=== PATIENT | female | born 1930 | race Caucasian/White ===

== ENCOUNTER → 2016-10-21 | Outpatient (CLI) | payer MEDICARE, OTHER ==
[~2016-10-21] MED LIST: ASPIRIN EC325 MG PO; AUGMENTIN250 MG PO; BACLOFEN10 MG PO; BACTRIM DS1 TAB PO; CALCIUM 600 +1 EAC3 PO; CEFUROXIME250 MG PO; COLACE100 MG PO; DILAUDID 4MG4 MG PO; DULCOLAX10 MG R; ELAVIL25 MG PO; FEOSOL325 MG PO; FLEXERIL10 MG PO; FLORASTOR250 MG PO; K-TAB 10MEQ10 MEQ PO; KEFLEX250 MG PO; LASIX20 MG PO; LIORESAL10 MG PO; MILK OF MA400 MG/5 M PO; MIRALAX17 GM PO; MYLICON OR GAS-80 MG PO; NORCO 5-325 TA1 EACH PO; NORVASC10 MG PO; OMEPRAZOLE20 MG PO; RECLAST5 MG/100 M IV; REQUIP1 MG PO; TOLTERODINE TART4 MG PO; TYLENOL325 MG PO; ULTRAM50 MG PO; VITAMIN B-1000 MCG/M SUB-Q; ZOCOR80 MG PO; ZOFRAN4 MG PO
== END | disposition disaster alternative care site (69) ==
LOC: GAMB 22:46
DX: S09.90XA Unspecified injury of head, initial encounter (principal); S01.91XA Laceration without foreign body of unspecified part of head, initial encounter; R53.1 Weakness; W19.XXXA Unspecified fall, initial encounter
CPT/HCPCS: A0425; A0429

== ENCOUNTER → 2016-10-22 | Outpatient (CLI) | payer MEDICARE, OTHER | END | disposition disaster alternative care site (69) | LOC: GAMB 22:47 | DX: S99.911A Unspecified injury of right ankle, initial encounter (principal); S82.891A Other fracture of right lower leg, initial encounter for closed fracture; M79.672 Pain in left foot; X58.XXXA Exposure to other specified factors, initial encounter | CPT/HCPCS: A0425; A0427; J3010 ==

== ENCOUNTER 2016-12-07 12:00 | Inpatient (IN) | payer MEDICARE, OTHER ==
[~2016-12-07] VITALS: Ht 165.1 cm; Wt 80.9 kg
--- NOTE | ~2016-12-07 | CON ---
PATIENT'S NAME: WALTER CHRISTIE [facility] AGE: 86 Y [address] ROOM: [place] [address] LOCATION: [facility] ADMIT DATE: 12/07/2016 Consultation DISCHARGE DATE: FAMILY PHYSICIAN: Alba Mccabe MD ATTENDING PHYSICIAN: Brigido Amaya DATE OF CONSULTATION: 12/07/2016 CHIEF COMPLAINT: Right ankle infected surgical wound site, medical clearance for surgery. HISTORY OF PRESENT ILLNESS: This is an 86-year-old female with history of hypertension; MS; and recent right ankle fracture, status post ORIF and metal hardware placement at the end of October, who presents with worsening pain and nonhealing wound at the surgical site over the past several weeks. The patient was admitted for exploration of the wound site per Ortho. The patient is being seen today for medical clearance. During my evaluation today, the patient complains of increasing pain in the right leg, however, denies any systemic signs of infection including fever or chills. Does report diminished appetite, but otherwise has been in her normal state of health. Denies any chest pain, shortness of breath, palpitations, dizziness, or lightheadedness as well. Denies any dysuria or frequency. Urination is abnormal from her baseline, but she does suffer from incontinence. PAST MEDICAL HISTORY: 1. Hypertension. 2. MS. SOCIAL HISTORY: No history of smoking, alcohol, or drug use. FAMILY HISTORY: The patient has history of stroke and heart attack in both of her parents. REVIEW OF SYSTEMS: All systems have been reviewed and were negative except as described in the HPI. PHYSICAL EXAMINATION: VITAL SIGNS: Afebrile and stable. GENERAL: The patient is awake, alert, oriented x3, in no acute distress, but appears a bit lethargic. HEENT: Moist mucous membranes. No scleral icterus or conjunctival pallor noted. PATIENT'S NAME: EDWIN CHRISTIEMA Beverly [facility] AGE: 86 Y [address] ROOM: [place] [address] LOCATION: [facility] ADMIT DATE: 12/07/2016 Consultation DISCHARGE DATE: FAMILY PHYSICIAN: Alba Mccabe MD ATTENDING PHYSICIAN: Brigido Amaya SKIN: No rash or lesions noted. Brace on the right ankle in place. CHEST: Clear to auscultation bilaterally. HEART: S1 and S2. Regular rate and rhythm. ABDOMEN: Soft, nontender, and nondistended. Positive bowel sounds. NEURO: Right upper extremity weakness, which is at baseline. MUSCULOSKELETAL: Right ankle in brace over the site of recent ORIF. No other joint swelling, effusion, or pain noted. ASSESSMENT AND PLAN: 1. Right ankle infected surgical site leading to recent open reduction and internal fixation. The patient plans for surgical exploration later today. ID consultation in place following this and determination of how to treat infection. Long-term to be determined based on what the surgery results show. 2. Hypertension. The patient is to continue her home medications for this. 3. Multiple sclerosis. The patient is to continue all her home medications for this as well. 4. Deep venous thrombosis prophylaxis per Ortho. The patient is at moderate risk for perioperative complications, but benefit of the surgery outweighs the potential risks associated. This has been discussed with the patient in detail. MD VICENTA IVORY/awais /[id number] d: 12/07/16 1843 t: 12/09/16 1421, CONSULTATION REPORT
--- NOTE | ~2016-12-07 | CON ---
PATIENT'S NAME: WALTER CHRISTIE [facility] AGE: 86 Y [address] ROOM: [place] [address] LOCATION: [facility] ADMIT DATE: 12/07/2016 Consultation DISCHARGE DATE: FAMILY PHYSICIAN: Alba Mccabe MD ATTENDING PHYSICIAN: Brigido Amaya DATE OF CONSULTATION: 12/08/2016 REQUESTING PHYSICIAN: Consultation is requested by Dr. Brigido Amaya. REASON FOR CONSULTATION: Right ankle postoperative infection. HISTORY OF PRESENT ILLNESS: Subjective: Walter is a pleasant 86-year-old female, whom I was asked to see today in consultation by Dr. Brigido Amaya for further evaluation and treatment recommendations regarding a right ankle infection. She underwent open reduction and internal fixation, apparently at another facility in October. She has had a nonhealing wound medially, and is subsequently admitted with increasing pain and swelling in the leg for likely debridement. She was on an oral antibiotic as an outpatient, but she does not know which one. She has not had any fevers, chills, or sweats. Prior wound cultures have grown methicillin-resistant Staphylococcus epidermidis. PAST MEDICAL HISTORY: 1. Hypertension. 2. Multiple sclerosis. CURRENT MEDICATIONS: See the MAR for complete listing. Current antibiotics are ceftriaxone. ALLERGIES: PREDNISONE, PHENYLBUTAZONE, NAPROXEN, SULFASALAZINE, AND SEVERAL NONSTEROIDAL MEDICATIONS. SOCIAL HISTORY: No history of alcohol or tobacco abuse. FAMILY HISTORY: Significant for stroke and heart disease. REVIEW OF SYSTEMS: A complete review of systems was carried out, and was remarkable only as noted. Please refer to the admission history and physical for complete PATIENT'S NAME: WALTER CHRISTIE [facility] AGE: 86 Y [address] ROOM: [place] [address] LOCATION: [facility] ADMIT DATE: 12/07/2016 Consultation DISCHARGE DATE: FAMILY PHYSICIAN: Alba Mccabe MD ATTENDING PHYSICIAN: Brigido Amaya details. PHYSICAL EXAMINATION: Objective: GENERAL APPEARANCE: She appears pleasant and comfortable and is in no acute distress. She appears nontoxic. VITAL SIGNS: Temperature is 36.8, blood pressure 138/68, and pulse 78. HEENT: Posterior pharynx clear, no adenopathy or thyromegaly. Cranial nerves are intact. NECK: Supple. CHEST: Clear to auscultation. CARDIOVASCULAR: Regular rate and rhythm without S3, S4, or murmur. ABDOMEN: Soft, nontender, without hepatosplenomegaly or masses. EXTREMITIES: The right medial ankle has a VAC in place with the wound approximately 2 x 3 cm, no surrounding erythema or significant swelling. NEUROLOGIC: Strength and sensation are grossly intact. PSYCHIATRIC: Behavior and affect are appropriate. LABORATORY DATA: Laboratory: Creatinine 0.7, white count 6.9. Microbiology: Urine culture on 12/07/2016 is pending. Urinalysis shows a packed field with red and white cells. Wound cultures on 11/25/2016 shows Staphylococcus epidermidis, resistant to oxacillin. IMPRESSION: Nonhealing wound of the right ankle, likely representing a deep postoperative wound infection. I am not clear what type of hardware she had placed, as her surgery was not done here and there is no information in the chart, or any x- rays. She tells me that she had a jed placed. In any event, the setting is suspicious for infection down to and involving the hardware. If that is the case, I am highly skeptical that this will resolve without complete removal of all the hardware. Other diagnoses are stable, as noted above. PLAN: For now, I would like to hold on further antibiotics. Surgery is anticipated, and we will await the surgical findings and cultures which are obtained at surgery. We can then start vancomycin 1 g every 24 hours, the dose adjusted by pharmacy as needed subsequently. I would anticipate several weeks of IV antibiotics, depending upon the surgical procedure and findings. I or one of my colleagues will see her back in 1 week for re-evaluation. Thank you for this consultation. I am available to discuss the case by phone PATIENT'S NAME: WALTER CHRISTIE [facility] AGE: 86 Y [address] ROOM: [place] [address] LOCATION: [facility] ADMIT DATE: 12/07/2016 Consultation DISCHARGE DATE: FAMILY PHYSICIAN: Alba Mccabe MD ATTENDING PHYSICIAN: Brigido Amaya at [phone]. GARRETT NOGUERA MD JSS/modl /[id number] d: 12/08/162053 t: 12/09/16811, CONSULTATION REPORT
--- NOTE | ~2016-12-07 | DS ---
PATIENT'S NAME: WALTER CHRISTIE AGE: 86 Y [address] ROOM: [address] [address] LOCATION: [facility] ADMIT DATE: 12/07/2016 Discharge Summary DISCHARGE DATE: 12/17/2016 FAMILY PHYSICIAN: Alba Mccabe MD ATTENDING PHYSICIAN: Brigido Amaya ADMITTING DIAGNOSIS: Infected hardware right ankle. COMORBIDITIES: History of stroke, MS, and hypertension. HOSPITAL COURSE: Hospitalist was consulted for inpatient management of her ongoing medical problems. Ceftriaxone was started 1 g IV daily 1 dose, close to admission for presumptive diagnosis of urinary tract infection. Urine culture was obtained prior to the initiation of the antibiotic. Lovenox was started for DVT prophylaxis. Infectious Disease was consulted. They suggested stopping the ceftriaxone, using vancomycin postop 1 g IV q.24 and get cultures at the time of hardware removal. PICC line placement was ordered for presumptive diagnosis of osteomyelitis with the need for assisted IV antibiotic administration. Adjustments were made to the vancomycin schedule according to pharmacy therapeutics recommendations. The patient's urine culture showed VRE. Wound VAC was placed on the right ankle over the exposed hardware. The patient complained on hospital day 2 of abdominal swelling and distention. Abdominal x-ray 2-view was ordered. Wound nurses continue to change the wound VAC 3 times a week. Postop day 7, continued to follow wound VAC changes week and wound was evaluated at each dressing change. PICC line was changed and a new one was placed for continued IV antibiotic administration. Ankle x-rays did show no callus formation with maintenance of reduction of the tibial component. The patient's appointments made at time of discharge was for followup with Infectious Disease in 3 weeks and we will follow up with her at our office in 2 weeks, and on 12/17/2016, arrangements were be made for the patient to be transferred to the fci of her choice and will get continued administration of IV antibiotics for her infection. JOIE ERWIN FOR MD NASEEM CARPENTER/awais /[id number] d: 01/06/17 0436 t: 02/09/17 1035, DISCHARGE SUMMARY
[2016-12-07] MEDS ORDERED: ASPIRIN EC325 MG PO (13:44)
[2016-12-07] MEDS ORDERED: ELAVIL25 MG PO (13:44)
[2016-12-07] MEDS ORDERED: CALCIUM 600 +1 EAC3 PO (13:45)
[2016-12-07] MEDS ORDERED: CEFUROXIME250 MG PO (13:46)
[2016-12-07] MEDS ORDERED: VITAMIN B-1000 MCG/M SUB-Q (13:48)
[2016-12-07] MEDS ORDERED: FEOSOL325 MG PO (13:49)
[2016-12-07] MEDS ORDERED: TOLTERODINE TART4 MG PO (13:49)
[2016-12-07] MEDS ORDERED: LIORESAL10 MG PO (13:50)
[2016-12-07] MEDS ORDERED: BACTRIM DS1 TAB PO (13:51)
[2016-12-07] MEDS ORDERED: COLACE100 MG PO (13:51)
[2016-12-07] MEDS ORDERED: BACLOFEN10 MG PO (13:52)
[2016-12-07] MEDS ORDERED: FLEXERIL10 MG PO (13:53)
[2016-12-07] MEDS ORDERED: DILAUDID 4MG4 MG PO (13:54)
[2016-12-07] MEDS ORDERED: MILK OF MA400 MG/5 M PO (13:55)
[2016-12-07] MEDS ORDERED: DULCOLAX10 MG R (13:55)
[2016-12-07] MEDS ORDERED: NORCO 5-325 TA1 EACH PO (13:56)
[2016-12-07] MEDS ORDERED: TYLENOL325 MG PO (13:57)
[2016-12-07] MEDS ORDERED: ZOFRAN4 MG PO (13:58)
--- NOTE | 2016-12-07 14:28 | NUR ---
86 Y/O FEMALE ADMITTED FOR AN INFECTED RT ANKLE HARDWARE. PT HAD ORIF IN OCTOBER AT [facility] WITH DR SANTIAGO AND THEN WENT TO [facility] FOR RECOVERY. ALLERGIES - PENICILLIN, PREDNISONE, NAPROXEN MED & SURG HISTORY - BILAT CATARACT W/ IOLI, FX WRIST & REPOAR, BROKEN KNEE CAP, BRAIN ANEURISM COILILNG, RT ANKLE ORIF & FRACTURE OF TIB/FIB OCTOBER 2016. PT DIAGNOSED WITH MULTIPLE SCLEROSIS DIAGNOSED 1999, HYPERTENSION, CONSTIPATION, FREQ UTI'S & BLADDER INCONTINANCE, NON DRINKER, NON SMOKER, PT DECEMBER 2015, PT WENT TO LIVE AT [facility] AFTER THAT UNTIL HER FRACTURES IN OCTOBER 2016. REPORT GIVEN TO PT PRIMARY CARE NURSE NEGRA PAYTON ADM EDUCATION COMPLETED WITH PT & SON
--- NOTE | 2016-12-07 17:56 | NUR ---
Significant Event: ADMITTED TODAY AROUND 1230..NEED TO USE LIFT FOR TRANSFERS. HAS HX MS AND IS UNABLE TO WALK...CSM GOOD IN TOES. WOC NURSE HERE AT 1530 APPLIED WOUND VAC,IS INCONT OF BOWEL AND BLADDER..HAD SURGERY ON RIGHT ANKLE IN OCTOBER...IS SABLE TO MAKE NEEDS KNOWN... Follow up:
[2016-12-07 23:15] LABS: BILIRUBIN URINE NEGATIVE (NEGATIVE); BLOOD URINE 250 /UL (NEGATIVE); COLOR URINE RED (YELLOW); GLUCOSE URINE NEGATIVE (NEGATIVE); KETONE URINE NEGATIVE (NEGATIVE); LEUKOCYTES URINE 500 /UL (NEGATIVE); NITRITE URINE POSITIVE (NEGATIVE); PROTEIN URINE 100 mg/dL (NEGATIVE); SPEC GRAVITY URINE 1.015 (1.003-1.035); TURBIDITY URINE 3+ (CLEAR); UROBILINOGEN URINE NORMAL (NORMAL)
[2016-12-07 23:22] LABS: BACTERIA URINE MANY (NEGATIVE); RBC URINE FULL FIELD #/HPF (NEGATIVE); WBC URINE FULL FIELD #/HPF (NEGATIVE)
--- NOTE | 2016-12-08 04:52 | NUR ---
Patient alert and oriented x3, very pleasant and cooperative, has wound vac in place to right lower leg no drainage present, dressing clean dry and intact, patient is a full body lift, had urinary frequency and bloody drainage, did UA recieved order from for IV antibiotics, feels much better after the antibiotics, IV in place to right forearm, had one dose of tramadol this shift for pain in her leg
[2016-12-08 11:36] LABS: BASOPHIL % 0.6 %; EOSINOPHIL # 0.4 K/uL (0.0-0.5); HEMATOCRIT 34.3 % (30.0-46.0); HEMOGLOBIN 10.9 g/dL (10.0-15.0); IMMATURE GRANULOCYTE % 0.1 %; LYMPHOCYTE # 1.8 K/uL (0.8-4.0); LYMPHOCYTE % 25.6 %; MCH 29.1 pg (27.0-34.0); MCHC 31.8 gm/dL (32.0-36.5); MCV 91.5 fl (83.0-98.0); MONOCYTE # 0.5 K/uL (0.0-1.0); MONOCYTE % 7.3 %; MPV 9.5 fl (9.4-12.4); NEUTROPHIL # (ANC) 4.3 K/uL (1.8-7.8); NEUTROPHIL % 61.4 %; NRBC % 0 /100WBC (0-0.00); RBC 3.75 M/uL (3.00-5.00); RDW-CV 14.3 % (11.9-14.6); WBC 6.9 K/uL (4.0-11.0)
[2016-12-08 11:37] LABS: PLATELET COUNT 267 K/uL (150-450)
[2016-12-08 11:54] LABS: ANION GAP 11.3 (10.0-19.0); BLOOD UREA NITROGEN 17 mg/dL (6-24); CALCIUM 9.3 mg/dL (8.5-10.5); CHLORIDE 108 mMol/L (96-110); CO2 24 mMol/L (22-32); CREATININE 0.7 mg/dL (0.5-1.1); ESTIMATED GFR (MDRD EQUATION) > 60; POTASSIUM 4.3 mMol/L (3.7-5.1); SODIUM 139 mMol/L (135-145)
--- NOTE | 2016-12-08 16:40 | NUR ---
Reviewed pt chart, pt has been on skilled stay at [facility]. Called Irina GAMBOA at [facility] and gave update of pt condition. She said family let them know they are not bringing pt back to [facility]. Asked if she knew what their plan was, she reports that she does not, but early on in her stay there they wanted her dc to [facility] so she made referral, but [facility] wouldn't accept as a full lift due to NWB on that ankle, required 1 assist to accept. She reports family hasn't come to get her things yet. I told her thats fine, I will talk with pt and family to see where else they would like a referral made. Waiting to see what ID doc recommendations are for infection. Will follow.
--- NOTE | 2016-12-08 17:14 | NUR ---
Significant Event: pt alert and oriented. dangled at the side of the bed with pt. wound vac intact. takes tylenol and flexeril for pain. inc of urine but does go in the bedpan also. is on fluid restriction starting today. repositions self. needs assist with meal ordering. full lift when up. Follow up:
--- NOTE | 2016-12-09 04:10 | NUR ---
Significant Event: Alert and oriented X3. Vital signs stable. Hx MS. Weakness to lower extremities. Wound vac to L) foot @ 125 continuous. O mls out. 500ml bolus given per orders. Vancomycin initiated. Nursings transfers patient with lift. Can be WBAT with cam boot, PT working with patient. Incontinence x1, uses bedpan at other times. Scant BM this am. Pt is NOT on a fluid restriction. Denies pain. Turned q 2 hr. DNR. Follow up: Need orthostatic BPs and pulse documented in progress notes this am.
--- NOTE | 2016-12-09 15:13 | NUR ---
Significant Event:PT ALERT AND ORIENTED. UP IN THE RECLINER THIS SHIFT PER PHYSICAL THERAPY. TRANSFERED WITH PIVOT TRANSFER. DOES FAIR. VOIDED IN BEDPAN AND SMALL BM. ORTHOSTATICS DONE THIS AM WITHOUT CHANGE. TAKES TYLENOL FOR PAIN.WOUND VAC INTACT. NO DRAINAGE. DRESSING INTACT. IV VANCO. UNSURE OF DISCHARGE DATE. Follow up:
--- NOTE | 2016-12-10 04:43 | NUR ---
Pt full lift from chair to bed. Pt denied nausea or dizziness when moving. No drainage in wound vac. Pt had two BM's this shift, the first formed and the second loose. Pt on IV vanc, trough on 12/11 @0300. Pt refused pain medication, but took one baclofen prn @ 2100. Pt repositioned q2H. Patient needs orthostatic bps this am, chart in progress note. Pt voided 3 times and was incontinent once. Pt to have PICC line placed today. Pt to wear boot when up. Dressing C/D/I.
[2016-12-10 07:11] LABS: HEMATOCRIT 36.2 % (30.0-46.0); HEMOGLOBIN 11.7 g/dL (10.0-15.0)
[2016-12-10 07:32] LABS: ALBUMIN 3.5 gm/dL (3.5-5.0); ANION GAP 14.4 (10.0-19.0); BLOOD UREA NITROGEN 13 mg/dL (6-24); CALCIUM 9.5 mg/dL (8.5-10.5); CHLORIDE 107 mMol/L (96-110); CO2 24 mMol/L (22-32); CREATININE 0.5 mg/dL (0.5-1.1); ESTIMATED GFR (MDRD EQUATION) > 60; MAGNESIUM 2.1 mg/dL (1.8-2.6); PHOSPHORUS 3.1 mg/dL (2.5-4.9); POTASSIUM 4.4 mMol/L (3.7-5.1); SODIUM 141 mMol/L (135-145)
--- NOTE | 2016-12-10 15:14 | NUR ---
Introduced self and care management services to patient. Asked her how her stay at [facility] was, if she wants to go back there on discharge. She says she doesn't have any real complaints, she guesses, about [facility], but would prefer to be in [place] if she can. Reports her daughter tried to get her into [facility] but they won't take her until able to be mobile again, and still non weight bearing on that foot. Discussed with her potential dc planning needs, possibility of needing custodial IV abx and wound vac, along with non weight bearing status. Discussed with her will see what SNF's in [place] can accommodate those things when we are closer to discharge, and if they can't then branch out from [place], discussed possibility of [place] since son lives in [place]. She voices her acceptance of that. Says she was at [facility] before and wants to go back there eventually. Asked about talking with her daughters or son and she says they call her every day, told her I am glad to talk with them and answer questions, and that I will call them when closer to time of discharge to discuss dc needs when we know what those are. She says okay.
--- NOTE | 2016-12-10 17:05 | NUR ---
Significant Event: patient alert and oriented x3. r) lower leg dressing and wound vac dressing changed by [facility] nurse this afternoon. had picc placed to r) upper arm this AM. c/o r) leg pain, received prn Baclofen at 0702 and tylenol 2 tabs at 1532, rates pain 5-0 on pain scale. cam boot on r) foot when up. Up to chair with 2 assist, heavy assist. l) foot pump in place. had 0ml out of wound vac. orthostatic bp's done this am, see progress notes. pleasant and cooperative with cares. no c/o dizziness or nausea with transfers. pt on iv vanco, trough on 12/11 at 0300. Follow up:
--- NOTE | 2016-12-11 04:51 | NUR ---
Pt had vanco trough at 0300. New vanco order 1250mg q12h starting today at 1600. PICC line to right upper arm, w/ good blood return. Attempted pivot from chair to BSC with 2 assist. Pt too weak to transfer so full lift was used. Pt's right index and middle finger was red and warm to the touch earlier in shift. When reassessed redness and warmth gone. Red e[place], silver dollar in size noted on left hip this am. No drainage in wound vac. Dressing C/D/I. Pt had two small loose stools. Pt appeared a little depressed this evening. Pt continues to be in contact isolation for VRE in urine. PRN tylenol given once around 2100.
--- NOTE | 2016-12-11 10:54 | NUR ---
A - PT SCREENED D/T LOS. WOUND VAC PLACED TO RLE. HT: 65" WT: 178# BMI: 29.6. LABS: GLU 104, CRP 2.02. MEDS: VANCO, FEOSOL, FLORASTOR. DIET: REG. INTAKE: 75-100% NEEDS: [id number] KCAL (22-28 KCAL/KG), 96-104 G PRO (1.2-1.3 G/KG), 2400 ML FLUID (30 ML/KG). D - INCREASED PRO NEEDS R/T HEALING AEB WOUND VAC TO RLE. I - GOAL FOR INTAKE TO REMAIN 75-100% FOR DURATION OF STAY. WILL ADD ENSURE @ B TO INC NUTRIENT INTAKE FOR HEALING. M/E - WILL MONITOR INTAKE, SKIN INTEGRITY F/U IN 4-6 DAYS.
--- NOTE | 2016-12-11 19:15 | NUR ---
Significant Event: PATIENT ALERT AND ORIENTED X3. LIANET DRESSING TO R) LOWER LEG C/D/I. WOUND VAC TO R) LOWER EXTREMITY INTACT, WITH 0ML OUT. C/O BILATERAL LEG PAIN, RATED PAIN 5-3 ON PAIN SCALE, RECEIVED BACLOFEN 1 TAB AT 0951 AND TYLENOL 2 TABS AT 1050. UP TO CHAIR WITH PHYSICAL THERAPY ASSIST, CAM BOOT TO R) FOOT WHEN UP. L) FOOT PUMP IN PLACE. PICC TO R) UPPER ARM PATENT/WITH GOOD BLOOD RETURN. IN ISOLATION FOR VRE IN URINE. Follow up: 12/12 PRATEEK SIMMONS AT 1500
--- NOTE | 2016-12-12 04:02 | NUR ---
Significant Event: A/O X 3. REMAINS IN CONTACT ISOLATION FOR VRE IN URINE, ATB THERAPY. HAS PICC LINE RIGHT UPPER ARM. IV SALINE LOCK RT LOWER ARM. RESTED IN BED THIS SHIFT AND BEEN REPOSITIONED 1-2 ASSIST. ACEWRAP DRSGS RIGHT LOWER LEG DRY-INTACT WITH WOUND VAC. NO DRAINAGE OUT. TYLENOL 650 MG GIVEN AT 0034 TO HELP REST. AT BEGINNING OF SHIFT BP 1945 BP 185/90 HR 90, LATER BP 188/86, HR 92 AT 2050. REPORTED TO CHARGE NURSE, DR PATE NOTIFIED, ORDER FOR NORVASC 10MG GIVEN AT 2212 FOR BP AND BACLOFEN FOR DISCOMFORT OF LEGS. SLEPT AWHILE. 0034 BP 179//79 HR 92. AT 0230 BP 170/70, IV BP MED GIVEN BY ELADIA PETTY RN AROUND 0300. VANCO IV ATB AT 0400. VOIDS ON BEDPAN GOOD AMOUNTS -PASSING FLATUS. NO BM. LAXATIVE NOT GIVEN FOR LOOSE STOOLS ON DAYS. Follow up:
--- NOTE | 2016-12-12 15:34 | NUR ---
Significant Event: pt alert but forgetful at times. had increased abdominal pain early this am. gave tylenol and tramadol for pain but didnt help. dr notified and orders for an abdominal exray that came back negative for obstruction. pain went away this afternoon. pt did have a headache though. tylenol given for that. iv vanco held at 1600 and pharmacy will recalculate time. wound vac to rt ankle. picc line intact. blood pressure elevate last night but ok today. inc of urine x 2. no bm today. some flatus this afternoon unsure of discharge date.
--- NOTE | 2016-12-13 04:14 | NUR ---
Significant Event: A/O X 3. PICC LINE INTACT RT UPPER ARM. HAS IV SALINE LOCK RT LOWER ARM. DRSGS DRY-INTACT RT LOWER LEG/ WOUNDVAC INTACT, NO DRAINAGE NOTED. TOES WARM TO TOUCH AND WIGGLES TOES. BP 138/63 HR 96, BP 133/64, HR 86. HAD TYLENOL 650 MG AT 2038, PAIN RATE 3 TO BILATERAL LEGS. HAD ULTRAM 50MG EARLIER THIS SHIFT. HAD VANCO IV ATB AT 1999. VOIDED X 2 ON BEDPAN. BEEN REPOSITIONED IN BED. Follow up:
[2016-12-13 06:20] LABS: ANION GAP 9.8 (10.0-19.0); BLOOD UREA NITROGEN 24 mg/dL (6-24); CALCIUM 9.2 mg/dL (8.5-10.5); CHLORIDE 110 mMol/L (96-110); CO2 25 mMol/L (22-32); CREATININE 0.5 mg/dL (0.5-1.1); ESTIMATED GFR (MDRD EQUATION) > 60; POTASSIUM 3.8 mMol/L (3.7-5.1); SODIUM 141 mMol/L (135-145)
[2016-12-13 06:29] LABS: BASOPHIL # 0.1 K/uL (0.0-0.2); BASOPHIL % 0.7 %; EOSINOPHIL # 0.6 K/uL (0.0-0.5); EOSINOPHIL % 8.4 %; HEMATOCRIT 34.7 % (30.0-46.0); HEMOGLOBIN 11.2 g/dL (10.0-15.0); IMMATURE GRANULOCYTE % 0.3 %; LYMPHOCYTE # 1.8 K/uL (0.8-4.0); LYMPHOCYTE % 24.5 %; MCH 29.2 pg (27.0-34.0); MCHC 32.3 gm/dL (32.0-36.5); MCV 90.6 fl (83.0-98.0); MONOCYTE # 0.6 K/uL (0.0-1.0); MONOCYTE % 8.2 %; NEUTROPHIL # (ANC) 4.4 K/uL (1.8-7.8); NEUTROPHIL % 57.9 %; NRBC % 0 /100WBC (0-0.00); PLATELET COUNT 250 K/uL (150-450); RBC 3.83 M/uL (3.00-5.00); RDW-CV 14.3 % (11.9-14.6); WBC 7.5 K/uL (4.0-11.0)
--- NOTE | 2016-12-13 12:44 | NUR ---
Reviewed chart and talked with Dr Farrell and also Kwame Woodward APRN for hospitalist. ID physician will see Tuesday to make final determination about antibx pt will need and how long. Likely will be Vancomycin. Pt preference to stay in [place]. Has a wound vac, also in isolation here for hx VRE in urine. Urine culture here grew pseudomonas and enterococcus and wound culture grew staph epidermidis. Talked with Ofelia at [facility], no female beds available. Talked with La Nena at [facility], no private rooms, only able to do IV antibx once a day, and don't take wound vacs. Called Julieth Peralta RN with [facility] [facility], faxed her referral information, she will see if [facility] might have a bed, not sure, and let me know if they can assess, they can do once or twice a day IV antibx and wound vac. Called [facility] in [place] and talked with child protective services social worker, they can do once a day or q 12 IV antibx, and not sure if they are able to accommodate a wound vac, but no private room at [facility]. Called [facility] and left message for child protective services social worker there to call me back to see if that would be an option if [facility] doesn't work out. Will also talk with pt and family to see what their next preference for placement would be if [facility] or [facility] can't accommodate. Pt is WBAT with cam boot on R foot now.
--- NOTE | 2016-12-13 13:36 | NUR ---
Talked with Ileana about options for SNF, let her know waiting to hear back, but only option in [place] may be [facility], otherwise still waiting to hear back from [facility] out of town, and can talk with Jeff if they want me to, otherwise options will be in [place]. Pt said she would be open to going back to [facility] but to talk with her son and daughter. Called son Sushant and discussed his moms dc planning needs, private room for hx VRE in urine, P.T. for ankle but WBAT now with cam boot on, IV antibx once or twice a day for 6 weeks (depending on ID doc final recommendation), and wound vac. Let him know [facility], [facility] and [facility] not options and why, let him know [facility] is going to call me back to let me know if they are, and I also called Jenelle Magaña in [place], not an option and why, and that I am waiting to hear back from [facility]. He asks me if [facility] is an option, I told him I can check with them, think they would be, but my understanding is they didn't want their mom to go back there. He basically said with limited options they might consider it and to check, but also to talk with his sister Arelis who is a PA at [phone]. Told him I would call her but also check with [facility]. Called daughter Arelis and discussed all the above with her, she said to also see if [facility] could accommodate, but also to check in [place]. She will discuss with her mom and brother and I will call her when I know more. I called Irina at [facility] and discussed with her, she will talk with her team and see if they can accommodate pt needs and let me know. Will make some calls to [facility] later this afternoon or tomorrow and see what options are there. To recap, waiting to hear back from [facility], [facility], and [facility] SNFs, and will call and see what options are in [place].
--- NOTE | 2016-12-13 14:09 | NUR ---
Significant Event: AOX3. VSS. CSM WNL. ACEWRAP DRESSING IS C/D/I/ PICC IN URA. PIV IN R) HAND. ON VANCO. IN ISOLATION FOR VRE. WOUND VAC INTACT WITH NO DRAINAGE. WBAT WITH 2 ASSIST WITH WALKER AND GAITBELT. TYLENOL GIVEN FOR PAIN. Follow up: MAY GO TO [facility].
--- NOTE | 2016-12-13 16:29 | NUR ---
Called [place] SNF facilities to see who might be able to accommodate surface room shop optician needs. Called [facility] in [place] and talked with their long term care social worker, no private rooms available and don't anticipate one opening up. 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 She will let me know what she finds out. Called [facility] and left message for long term care social worker Louise Schneider to call me back and let me know if they can accommodate the above. Called [facility] and left message for Sonya Damian economic development coordinator to call me back and let me know if they can accommodate the above. Called [facility] and left message for Ana in social work to call me back to let me know if they can accommodate the above. Received call back from Julieth Mcgraw from [facility] in [place], she said they will need to see what IV antibx's patient will be on and how often. She said right now with wound vac and IV antibx pt is on the edge of what break even would be so if ends up on 2 different IV antibx because of the active VRE in urine and other infection in ankle, may be too expensive to accept her. Asked if would go to [facility] or [facility], she said either [facility] would cohort with another VRE patient or move rooms around to make a private room, or maybe [facility] might have a private room come open at end of week, but need to see how expensive it will be to accept patient before they can decide if they can accommodate at either facility. Will let her know what ID doc says on Tuesday.
--- NOTE | 2016-12-14 04:06 | NUR ---
Pt. alert and oriented - forgetful at times. RA. 2 assist. VSS - hypertensive. Hydralazine 20mg IV given at 0030. PICC in R) arm for IV antibx - vanco given q 18 hours. IV in R) hand. No fluids. Isolation for VRE. Wound vac intact with 0 output. LIANET wrap to R) foot. Trouble with spasms in legs all night. Gave bacofen at HS, ultram and flexeril at 0030, and tylenol at 0200 - no relief noted. Kpad to L) leg but did not seem to help patient. Pt. did not sleep all shift. Using bedpan due to weakness with legs. Cooperative with cares.
--- NOTE | 2016-12-14 09:54 | NUR ---
Called facilities back today and talked with admissions coordinators/social workers and faxed referrals. [facility] in [place] unable to accept. [facility] in [place] unable to accept. [facility] skilled unit in [place] unable to accept. Have referrals out to [facility] and Juli[facility] says will depend on what antibx/antibxs ID physician decides on because with wound vac and IV antibx may be too expensive for their facilities to take on, and will need to rearrange rooms to accomodate if they decide they can. Irina at [facility] is reviewing and said she will let me know if they can accept back. Waiting call back from [facility] to see if they are able to meet her needs then would start referral. In [place] I sent referrals to [facility] there said they have a private room and can care for wound vac, but only do every 24 hour IV antibx. Sent referral to [facility] in [facility] [place] there said they may have a private room this week, can care for wound vacs and do every 12 hour IV antibx. Waiting to hear back from [facility] in [place] to see if they can meet pt needs. Started referral to [facility] in [place] said they prefer every 24 hour IV antibx but have done every 12 hour IV antibx in past, care for wound vacs, and have 1 private room available at this time. At this point, waiting to hear back from SNF's to see which ones would look at accepting depending on IV antibx decision by ID physician tomorrow.
--- NOTE | 2016-12-14 15:36 | NUR ---
Pt alert and oriented x3. can be forgetful and repeats herself. contact precautions for VRE. Wound vac intact with 0 output. Acewrap to right foot. Foot pump to left foot. Pain and spasms to both legs. Rating pain around a 6 on 0-10 scale. Pt given tylenol, flexeril, and baclofen given for pain, no relief. Pt is full weight bearing, had to use sling and lift to get pt from bed to chair. No BM this shift.
--- NOTE | 2016-12-14 16:21 | NUR ---
[place] social media intern called back and requested I fax referral information, they would be interested in seeing if they can meet her needs, faxed referral. Received a call back from [facility] and depending on final decision about IV antibx and frequency they are willing to accept to [facility] on Tuesday. Let her know family wants to know all their options so will let her know if [facility] is where they want patient to go, but also will update her when we know IV antibx decision. They are okay with that. Still waiting to hear back from [facility], [facility] in , and [facility], [facility] Will update them with antibiotic decision after ID physician rounds tomorrow.
--- NOTE | 2016-12-15 04:34 | NUR ---
Pt. alert but increasingly confused and agitated at end of shift. RA. VSS - gave x1 dose of 10mg hydralazine at 0230. Pt. denied pain and spasms until 0400 and then refused medication. Did give PRN flexeril at HS. Pt. did sleep throughout shift well until 0330. 2 assist - used the lift this shift. Wound vac to R) foot with LIANET wrap. Boot to wear when up during day. Incontinent at times. Uses bedpan. Pt. pulled out entire PICC line around 034 when giving IV vanco. ordered 500mg additionally of vanco and resume regular pharmacy dosing. Also ordered 12.5mg PO Seroquel.
[2016-12-15 08:11] LABS: CREATININE 0.6 mg/dL (0.5-1.1); ESTIMATED GFR (MDRD EQUATION) > 60
--- NOTE | 2016-12-15 13:33 | NUR ---
Received call from daughter Arelis [phone] this morning to see what SNF are options to take care of her mom on discharge here. Let her know ID physician hadn't seen yet at the time she called so would depend on final choice of IV antibx, but that I had started referrals to [facility] in [place], [facility], [facility], and that [facility] in [place] has already said they could accept, and that also made referrals to [facility], [place], [facility] in [place], and [facility], will depend on final choice of IV antibx. Asked Arelis if they have a preference of those facilities, she says no they don't, asked if their first choice would be [place] if [facility] or [facility] could accommodate and Arelis says not necessarily, would want to know all their options. I responded also that her mom has been at [facility] and they seemed very interested in having her back if they can, would that be their choice since her mom was there before? Arelis reports she isn't sure, again wants to know all their options. Told her I will update all the SNF today after ID physician sees and see who can accept and let her know. She is okay with that plan. ID physician saw pt late this morning and will need IV Vancomycin 1500mg once every 24 hours through 01/18/17. Also needs wound vac and PT/OT for strengthening. Right now WBAT RLE with cam boot on. 2 person max assist to stand from lying or sitting position, then min assist to take a few steps to chair per P.T. note a couple days ago. ID will see in 3 weeks and if ankle hardware still exposed will recommend hardware removal. If not exposed then will finish out course of IV antibx. I faxed update to Julieth Mcgraw at [facility], Katiana at [facility], Irina at [facility], Lauryn at [facility] [place], Lupe at [facility] in , Raquel at [facility] for [facility], and Ethel at [facility]. I called and talked sharri Clancy at [facility], Katiana at [facility], Irina at [facility], Maria De Jesus with [facility] for [facility], and [place] at [facility]. [facility] and [facility] have accepted if they choose them. The rest will let me know by the end of the day. I left messages for Lauryn at [facility] [place] and Lupe at [facility] and requested they call me back by the end of the day to let me know if they can meet her needs so I can give those options to family. Will continue to work towards dc on Tuesday, once family makes a decision the SNF will have to order a wound vac.
--- NOTE | 2016-12-15 13:44 | NUR ---
Significant Event: Pt denies pain. Really confused first this this am but more oriented during the day. Repositioned q 3 hrs in bed. Wound vac to right lower ankle dressing changed by WOC today. flexeril given @ 1230 per request of picc nurse as they are having a hard time with PICC placement so pt taken to [facility] for insertion. In contact isolation for VRE. Follow up:
--- NOTE | 2016-12-15 16:11 | NUR ---
A - NUTRITION FOLLOW-UP AND CONSULT FOR CALORIE COUNT X3 DAYS. FOOD AND NUTRITION SERVICES NO LONGER DOING CALORIE COUNT. PT HAS WOUND VAC TO RIGHT LEG. LABS: GLU 106, PRE-ALB 16, CRP 2.02. MEDS: REMERON 12/14. DIET: REGULAR W/ ENSURE ENLIVE ONCE DAILY. INTAKE ABOUT 35% X10 MEALS. PT ALSO REPORTED POOR APPETITE. REMERON STARTED 12/14. TRIED A BOTTLE OF ENSURE ENLIVE SO FAR, DOES NOT LIKE IT BUT AGREED TO TRY CHOCOLATE FLAVOR. OFFERED OTHER ORAL SUPPLEMENT OPTIONS, AGREED TO TRY. PER PT, NO APPETITE BUT FORCED HERSELF TO EAT. ENCOURAGEMENT GIVEN. REVIEWED PT'S MENU, HAS BEEN ORDERING SMALL AMOUNT OF FOOD EVERY MEALS. EST NEEDS: [id number] KCAL, 96-104 GRAMS PROTEIN, FLUID NEEDS: 1ML/KCAL D - INADEQUATE ORAL INTAKE RELATED TO DECREASED APPETITE EVIDENCED BY PO 35% X10 MEALS AND PATIENT REPORT. I - PT AGREED TO TRY ENSURE ENLIVE BID; ENSURE PUDDING BID AND MAGIC CUP BID. M/E - GOAL: PT WILL BE ABLE TO TOLERATE >50% OF MEALS AND AT LEAST TWO ORAL SUPPLEMENTS PER DAY IN 2-4 DAYS. PLAN: 1) MIGHT NEED ENTERAL NUTRITION IF APPETITE DOES NOT IMPROVE.
--- NOTE | 2016-12-15 16:22 | NUR ---
Barnwell back from Julieth at [facility], they cannot accept (no private room at [facility] and not able to move rooms around at [facility] at this point like they were thinking) Barnwell back from Lauryn at [facility], she talked with director china and pt has pretty high acuity and with their staffing they are not able to meet her needs at this time. Talked with Irina at [facility] and she said if there was no other accepting facility they would accept her back, but since there are other accepting facilities, with the families concerns while pt was there, she thinks they will be happier at another SNF and will not accept back at this time. Talked with Lupe at [facility] in [place], she is reviewing right now with their director china and I answered questions about the wound vac, they will let insurance healthcare consultant know in the morning if they can accept. Called Simon Dickson, both manager social work and director china out for the day, left message for director china to please call in the morning to let us know if they can accept. [facility] accepted and [facility] has accepted. Called daughter Arelis [phone] and discussed the above with her. Let her know ID physician decision about antibx and recommendations for followup in 3 weeks. Asked her to talk with her brother idalia to make a decision about 1st/2nd/3rd choice of 4 facilities who have accepted or potentially still could accept and insurance healthcare consultant will talk with her in the morning for their decision and we will move forward with planning for SNF on Tuesday, SNF will have to order wound vac and antibx so we will have to let them know tomorrow morning. She said okay. Also let her know her mom has used 39 skilled days, has 61 left which is basically 8 weeks 5 days, enough to get through the 6 weeks of IV antibx but wanted to let her know where that is at. She voices understanding. Treatment Plant Mechanic will call her in the morning and gave her the main office number for care management in case she wants to call before we call her.
--- NOTE | 2016-12-16 03:44 | NUR ---
Pt. alert but very forgetful and repeats herself at times. 2 assist with full lift. Denies pain and spams. RA. VSS - no PRN hydralazine given for BP. Incontinent x1 and void x1. No BM. Did bladder scan and got 613ml and post void was 86ml. Wound vac to R) ankle. LIANET wrap on and boot to be on when up. PICC to R) upper arm. IV vanco every 24 hours at 2000. Iso for VRE. Groggy acting this shift after fell asleep but pleasant and cooperative with cares this shift. Son visited.
[2016-12-16 06:08] LABS: ALK PHOS 90 IU/L (33-138); ALT 104 IU/L (12-78); ANION GAP 10.9 (10.0-19.0); AST 59 IU/L (10-40); BLOOD UREA NITROGEN 22 mg/dL (6-24); CALCIUM 8.8 mg/dL (8.5-10.5); CHLORIDE 110 mMol/L (96-110); CO2 25 mMol/L (22-32); CREATININE 0.5 mg/dL (0.5-1.1); ESTIMATED GFR (MDRD EQUATION) > 60; POTASSIUM 3.9 mMol/L (3.7-5.1); SODIUM 142 mMol/L (135-145); TOTAL BILIRUBIN 0.4 mg/dL (0.0-1.5); TOTAL PROTEIN 6.4 g/dL (6.0-8.4)
[2016-12-16 06:13] LABS: BASOPHIL % 0.7 %; EOSINOPHIL # 0.6 K/uL (0.0-0.5); EOSINOPHIL % 10.3 %; HEMATOCRIT 33.2 % (30.0-46.0); HEMOGLOBIN 10.6 g/dL (10.0-15.0); IMMATURE GRANULOCYTE % 0.2 %; LYMPHOCYTE # 1.8 K/uL (0.8-4.0); LYMPHOCYTE % 32.4 %; MCH 29.2 pg (27.0-34.0); MCHC 31.9 gm/dL (32.0-36.5); MCV 91.5 fl (83.0-98.0); MONOCYTE # 0.7 K/uL (0.0-1.0); MONOCYTE % 12.1 %; MPV 9.9 fl (9.4-12.4); NEUTROPHIL # (ANC) 2.4 K/uL (1.8-7.8); NEUTROPHIL % 44.3 %; NRBC % 0 /100WBC (0-0.00); PLATELET COUNT 239 K/uL (150-450); RBC 3.63 M/uL (3.00-5.00); RDW-CV 14.8 % (11.9-14.6); WBC 5.5 K/uL (4.0-11.0)
--- NOTE | 2016-12-16 11:05 | NUR ---
RECEIVED CALL THIS AM FROM [facility] AND [facility] IN [place] AND THEY BOTH OF THE FACILITIES WILL NOT BE ABLE TO ACCEPT PATIENT. I SPOKE TO PATIENT'S DAUGTHER CAN ( [phone]) I UPDATED HER OF THIS. I UPDATED HER THAT AT THIS TIME [facility] OR [facility] WILL ACCEPT PATIENT. CAN REQUESTS TO ME THAT SHE WANTS TO SPEAK TO THE REST OF THE FAMILY AND SHE WILL GET BACK TO ME. I LATER RECEIVED CALL FROM HER AND SHE TOLD ME THAT SHE WOULD LIKE FOR ME TO CHECK AT [facility] IN [place]. I NOTIFIED THE MAIN OFFICE AND THEY INFORM ME THAT [facility] DOES NOT HAVE FEMALE BEDS. I UPDATED CAN AND NOW SHE WANTS ME TO CHECK WITH [facility]. I NOTIFIED THEM BUT HAD TO LEAVE A MESSAGE ON VOICE MAIL FOR CESIA TO CALL ME.
--- NOTE | 2016-12-16 14:28 | NUR ---
Significant Event: Pt denies pain. Up in recliner with 2 max assist most of day, refused to get back into bed. a/o x3 this shift. Wound vac d/i to right lower leg, cam boot on when up. Continues in contact isolation for VRE. Has PICC to left arm. Follow up:
--- NOTE | 2016-12-16 15:48 | NUR ---
RECEIVED CALL FROM FADIA AT [facility] AND THEY WILL NOT BE ABLE TO ACCEPT PATIENT AND ALSO RECEIVED CALL FROM THE LEIGH AT [facility] AND THEY WILL NOT BE ABLE TO ACCEPT PATIENT. I NOTIFIED PATIENT'S DAUGHTER CAN AND UPDATED HER. SHE IS NOT HAPPY THAT [facility] OR [facility] WILL NOT BE ABLE TO ACCPET PATIENT. I EXPLAINED TO HER THAT [facility] HAS A BED. AND THAT I CAN CALL THEM TO SEE IF THEY WILL ACCEPT PATIENT. SHE TELLS ME " I HOPE THAT THEY DO NOT HAVE A BED SO THAT MOM HAS TO STAY AT THE HOSPITAL. " I NOTIFIED [facility] AND SPOKE TO BECCA AND SHE REPORTS THAT THEY HAVE A BED AND THEY CAN ACCEPT HER TOMORROW BUT WILL NOT BE ABLE TO TRANSPORT HER DUE TO NOT HAVING VAN AVAILABLE DUE TO HAVING TO TRANSPORT 5 PEOPLE TO .WILL NEED TO TRANSPORT VIA AMBULANCE. NOTIFIED [facility] AND SPOKE TO TITA ARRANGED FOR AMBULANCE TRANSPORT AT 1130.NOTIFIED CAN AND UPDATED HER THAT [facility] A BED FOR [facility] AND THAT WE WILL HAVE TO ARRANGE FOR AMBULANCE TO TRANSPORT AND THAT THEY WILL TRANSPORT PATIENT AT 1130 AND CAN IS OK WITH THIS. SHE IS GOING TO CONTACT THE REST OF THE FAMILY.
--- NOTE | 2016-12-16 16:50 | NUR ---
MEET WITH PATIENT'S SON HAYDEN UPDATED HIM THAT HIS MOM WILL BE GOING TO [facility] TOMORROW AT 1130 HE TELLS ME THAT HE IS AWARE OF THIS HE HAD RECEIVED CALL FROM HIS SISTER CAN. I SPOKE TO WALTER AND UPDATED HER THAT SHE WILL BE GOING TO [facility] AND SHE IS IN AGREEMENT TO THIS. SHE TELLS ME THAT SHE IS DISAPPOINETED THAT [facility] DOES NOT HAVE A BED. I SPOKE TO DR. FREIRE AND UPDATED HER THAT WALTER HAS BEEN ACCEPTED AT [facility] AND ALSO NOTIFIED DR. FOSTER AND THEY BOTH FEEL PATIENT IS READY FOR DISCHARGE.
[2016-12-17 06:30] LABS: CREATININE 0.5 mg/dL (0.5-1.1); ESTIMATED GFR (MDRD EQUATION) > 60
--- NOTE | 2016-12-17 06:47 | NUR ---
Significant Event: Pt up in chair start of shift. Heavy 3 assist back to bed. Picc line right upper arm with good blood return. Pt requested Tylenol at 0230 for leg smasms. Voids per bedpan. Pt feels constipated and gave MOM at HS with no results thus far, only lots of gas. Wound vac with no output. Follow up: DC to [facility] today at 1130.
--- NOTE | 2016-12-17 10:35 | NUR ---
PT HX HTN, MS, RECENT R ANKLE FX, POST ORIF WITH METAL HARDWARE PLACEMENT IN OCTOBER. BRAIN ANEURISM COILING, FREQUENT UTI'S AND BLADDER INCONTINENCE. WOUND VAC TO R) ANKLE, DRESSING CHANGED THIS AM. PICC LINE TO LAURA. PT WILL NEED WEEKLY LABS FAXED TO [facility] UNTIL 01/18. PT IS A HEAVY 2PA WITH WALKER. THERAPY WORKING WITH. TOLERATING REGULAR DIET. PT HAD MILK OF MAG LAST PM, NO RESULTS. PT REQUESTED SUPPOSITORY THIS AM- GAVE WITH NO RESULTS AT THIS TIME. LAST DOCUMENTED BM WAS 12/14 PM. REMAINS IN CONTACT ISOLATION FOR HX VRE IN URINE.
--- NOTE | 2016-12-17 12:04 | NUR ---
Patient discharging to [facility] in [place] today for skilled care for IV antibiotics, wound care with wound vac, and PT/OT for strengthening. Going via ambulance as [facility] unable to come get her.
--- NOTE | 2016-12-17 15:08 | NUR ---
NURSE TO NURSE REPORT CALLED TO [facility] AT [phone]
--- NOTE | 2016-12-17 15:08 | NUR ---
I HAVE REVIEWED AND AGREE WITH CHARTING COMPLETED BY [facility] STUDENT COLE GUZMAN FROM [phone] SALVADOR DICKSON
[2017-02-23] MEDS ORDERED: MIRALAX17 GM PO (14:44)
[2017-02-23] MEDS ORDERED: K-TAB 10MEQ10 MEQ PO (14:45)
[2017-02-23] MEDS ORDERED: OMEPRAZOLE20 MG PO (14:45)
[2017-02-23] MEDS ORDERED: LASIX20 MG PO (14:46)
[2017-02-23] MEDS ORDERED: KEFLEX250 MG PO (14:46)
[2017-02-23] MEDS ORDERED: NORVASC10 MG PO (14:47)
[2017-02-23] MEDS ORDERED: ZOCOR80 MG PO (14:49)
[2017-02-23] MEDS ORDERED: REQUIP1 MG PO (14:49)
[2017-02-23] MEDS ORDERED: ULTRAM50 MG PO (14:50)
[2017-02-23] MEDS ORDERED: RECLAST5 MG/100 M IV (14:50)
[2017-02-23] MEDS ORDERED: FLORASTOR250 MG PO (14:51)
[2017-03-04] MEDS ORDERED: MYLICON OR GAS-80 MG PO (12:04)
== END 2016-12-17 11:41 | DRG 559 ==
LOC: G3N 12:13 → GMSU 12-11 15:31
PROVIDERS: Internal Medicine; Internal Medicine Geriatric Medicine; Orthopaedic Surgery; ADMIT Orthopaedic Surgery
PROC: 2W1QX6Z Compression of Right Lower Leg using Pressure Dressing (ICD-10-PCS; principal; 2016-12-07)
PROC: 2W0QX6Z Change Pressure Dressing on Right Lower Leg (ICD-10-PCS; 2016-12-17)
DX: T84.69XA Infection and inflammatory reaction due to internal fixation device of other site, initial encounter (principal); G93.40 Encephalopathy, unspecified; E44.0 Moderate protein-calorie malnutrition; N39.0 Urinary tract infection, site not specified; T81.4XXA Infection following a procedure, initial encounter; G35 Multiple sclerosis; I10 Essential (primary) hypertension; Z88.0 Allergy status to penicillin; Z88.8 Allergy status to other drugs, medicaments and biological substances; I25.10 Atherosclerotic heart disease of native coronary artery without angina pectoris; Y79.8 Miscellaneous orthopedic devices associated with adverse incidents, not elsewhere classified; K59.00 Constipation, unspecified
CPT/HCPCS: C1751; C1894; J0360; J0696; J1650; J2001; J3370; J7030; J7040; J7050; P9045

== ENCOUNTER → 2016-12-17 | Outpatient (CLI) | payer MEDICARE, OTHER | END | disposition disaster alternative care site (69) | LOC: GAMB 11:43 | DX: S99.911A Unspecified injury of right ankle, initial encounter (principal); M00.9 Pyogenic arthritis, unspecified; M25.571 Pain in right ankle and joints of right foot; I10 Essential (primary) hypertension; Z98.890 Other specified postprocedural states; Z79.82 Long term (current) use of aspirin; Z79.891 Long term (current) use of opiate analgesic; Z79.2 Long term (current) use of antibiotics; Z79.899 Other long term (current) drug therapy; Z88.8 Allergy status to other drugs, medicaments and biological substances; X58.XXXA Exposure to other specified factors, initial encounter | CPT/HCPCS: A0425; A0428 ==

== ENCOUNTER 2017-03-09 06:00 | Inpatient (IN) | payer MEDICARE, OTHER ==
[~2017-03-09] VITALS: Ht 165.1 cm; Wt 82.2 kg
--- NOTE | ~2017-03-09 | OR ---
PATIENT'S NAME: WALTER [facility]IE [facility] AGE: 86 Y [address] ROOM: [address] [address] LOCATION: [facility] ADMIT DATE: 03/09/2017 OR/Procedure Report DISCHARGE DATE: FAMILY PHYSICIAN: Alba Mccabe MD ATTENDING PHYSICIAN: Brigido Amaya SURGEON: Brigido Amaya MD GO GO DANCER: JOIE Kohler. DATE OF PROCEDURE: 03/09/2017 PREOPERATIVE DIAGNOSIS: Infected medial plate, right tibia. POSTOPERATIVE DIAGNOSIS: Infected medial plate, right tibia. OPERATION: Removal of plate with debridement and irrigation of open wound. ANESTHESIA: Popliteal and sciatic nerve blocks with MAC. INDICATIONS: This is an 86-year-old female with multiple sclerosis, who sustained a fracture of her distal tibia and fibula some 6 months or more ago. She was treated with a long anteromedial tibial plate, and she did well at first, but at about 4 weeks or so postop, she developed an ulcer over the distal end of the plate. She was treated with wound care using a wound VAC and then dressing changes and off and on antibiotics. The radiographs now show what appears to be a healed tibia fracture and the plan is to remove the plate. DESCRIPTION OF PROCEDURE: The patient was brought to the operating room, and when a satisfactory popliteal and sciatic nerve blocks had been obtained, she was sedated and her right lower extremity prepped and draped in an aseptic manner. The distal cluster of 6 screws was then removed. The C-arm was brought in and the proximal 5 screws were visualized with the C-arm and a stab wound made over each one and the screw removed. The plate was then grasped and pulled out through the wound. The wound originally was about 2 cm in diameter and a 2.5 cm long extension was made proximally to expose the distal screws. Once the plate had been removed, the granulation tissue was debrided. There was soft tissue coverage on the bone and no exposed bone. A couple of the screw holes were debrided with a curette and cultures were taken. These were sent to the lab. The extension of the wound was closed by JOIE Fowler, with 3-0 Prolene and the proximal stab wounds were closed with 3-0 Prolene as well. Dressings were applied, and the patient was awakened and sent to the recovery area having tolerated the procedure well. PATIENT'S NAME: WALTER [facility] AGE: 86 Y [address] ROOM: [place] [address] LOCATION: [facility] ADMIT DATE: 03/09/2017 OR/Procedure Report DISCHARGE DATE: FAMILY PHYSICIAN: Alba Mccabe MD ATTENDING PHYSICIAN: Brigido Amaya MD CEW/modl /[id number] d: 03/09/17 1010 t: 03/16/17 1035, OPERATIVE SUMMARY
--- NOTE | ~2017-03-09 | OR ---
PATIENT'S NAME: WALTER CHRISTIE [facility] AGE: 86 Y [address] ROOM: [address] [address] LOCATION: [facility] ADMIT DATE: 03/09/2017 OR/Procedure Report DISCHARGE DATE: FAMILY PHYSICIAN: Alba Mccabe MD ATTENDING PHYSICIAN: Brigido Amaya SURGEON: Gage Kline MD COLLECTION ADVISOR: DATE OF PROCEDURE: 03/10/2017 INDICATION FOR PROCEDURE: Walter is two days post hardware removal 4 months after ORIF Right tibia. X-ray showed excellent reduction. The bone is stable, but still shows incomplete healing by x-ray. The wound is excellent. There was no active drainage. Cultures today show no growth. The boot that she has been using is too heavy. She is too weak to walk with it. We put something optical effects layout person and more compact on. PROCEDURE: Her dressings were entirely removed. Sterile dressings were applied along the left aspect of her leg. Suture line is intact. There is still about a quarter-sized area open over the medial malleolus, but that is clean and dry. Cast padding was applied and a short-leg sugar-tong fiberglass splint applied with two Kalpesh wraps. Tolerated well. I spoke with Physical Therapy. MD RAHEL BURGERA/modl /[id number] d: 03/11/17 1232 t: 03/16/17 1056, OPERATIVE SUMMARY
--- NOTE | ~2017-03-09 | DS ---
PATIENT'S NAME: WALTER CHRISTIE [facility] AGE: 86 Y [address] ROOM: [address] [address] LOCATION: [facility] ADMIT DATE: 03/09/2017 Discharge Summary DISCHARGE DATE: 03/11/2017 FAMILY PHYSICIAN: Alba Mccabe MD ATTENDING PHYSICIAN: Brigido Amaya PREOPERATIVE/ADMISSION DIAGNOSIS: Infected hardware, right tibia. POSTOPERATIVE/DISCHARGE DIAGNOSIS: Infected hardware, right tibia. PROCEDURE PERFORMED: Hardware removal, right tibial medial plate and screws. 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 The fracture had healed and plate was removed. Intraoperatively, cultures were obtained, and Ancef 2 g was given as a generic infection control. Awaiting culture results to specify antibiotic coverage. She is also on chronic suppressive Keflex for a chronic urinary tract infection. Postoperatively, she was made ambulatory in a boot. Culture showed no growth. On postoperative day #1, she had minimal pain. She had a low- grade temperature of 99.1. On postoperative #2, she was moving around a little better. Augmentin 875 p.o. b.i.d. and increased aspirin to mg p.o. q. day for improved DVT prophylaxis. On postoperative #3, the patient was discharged back to [place] with Home Health. DISCHARGE INSTRUCTIONS: 1. Continue aspirin for 30 days and hold Keflex for UTI maintenance suppression until Augmentin course is complete. Augmentin 875 p.o. b.i.d. for 10 days, dispensed 10. 2. Continue Slater and tramadol for pain control. 3. Weight bear as tolerated in the boot walker. 4. Follow up with myself in 6 to 12 days. JOIE ERWIN FOR MD NASEEM CARPENTER/awais /[id number] d: t: 03/17/17 1147, DISCHARGE SUMMARY
[~2017-03-09 06:00] MED LIST changes: -AUGMENTIN250 MG PO
--- NOTE | 2017-03-09 11:35 | NUR ---
Introduced self/role to patient and her daughter. Plan would be for patient to return to [facility]. They have had [facility] recently start, they are doing wound care. Would like this to continue. Tuesday would be the earliest for discharge, need to see what cultures do. Daughter would transport patient back to [facility] when ready to go. I will update [facility] and probably call JOSEPH tomorrow with an update. They had no questions or concerns. Added my name to her marker board, will continue to follow. 1340 Called Sandie Zavala with [facility] #[phone], she will see patient tomorrow and Tuesday.
--- NOTE | 2017-03-09 11:53 | NUR ---
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 A: I called Infection Control to determine if patient should be placed in isolation r/t VRE in her urine and she is incontinent. R: Place in isolation for now until she does some research. I received a call back after placing her in contact isolation that she no longer needs isolation.
--- NOTE | 2017-03-09 17:49 | NUR ---
Significant Event: Assumed cares at 1300. Ambulates with two assist, walker and gaitbelt. CAM boot when out of bed. Denies pain. Dressing C/D/I. Follow up:
--- NOTE | 2017-03-10 03:23 | NUR ---
Significant Event: PATIENT ALERT AND ORIENTED X 3. VSS. TAKING PO WITHOUT DIFFICULTY. INCONTINENT OF URINE AND VOIDS PER BEDPAN. PAIN ISSUES ON AND OFF THROUGHOUT NIGHT. NORCO AND VALIUM LAST AT 0011 - WILL UPDATE ON LAST MED TIMES AT REPORT. SL PATENT TO R) POSTERIOR FA. WRAP TO R) LOWER LEG C/D/I. CAM BOOT ON WHEN UP. VERY HEAVY 2 ASSIST TO TRANFER - LEANS FORWARD AND DOES NOT STAND UP WELL. RIGHT SIDE WEAK - NOT NEW. CSM'S WNL. COOPERTVE WITH CARES. WILL MOST LIKELY NEED PLACEMENT. Follow up:
--- NOTE | 2017-03-10 10:00 | NUR ---
Kwame Carver and Toy with PT voiced concerns about patients ability to go back to [facility] today. 1020 Faxed updates to [facility] and asked if they could come and assess patients ability to return to them. 1145 Renea from [facility] called, they can come and assess tomorrow at 0830. 1210 Updated patient and daughter. Talked about alternative options. If skilled is needed first choice would be [facility] and [facility]. Also talked about in home care providers. Gave daughter the list of the providers in [place]. She will call them today. Also talked about admission status in the hospital being up in the air right now. Sending to [facility] for review. Daughter believes they used all of their 100 days at [facility] not long ago. Placed a note on the chart regarding [facility] coming to assess. Dina updated Dr. Kline. 1240 Updated Sandie with [facility].
--- NOTE | 2017-03-10 17:25 | NUR ---
Significant Event: Takes few steps with two assist and walker. CAM Boot when ambulating. Dressing changed this am, C/D/I at this time. Ice and elevate at all times. [place] and Baclofen for pain, see emar. Incont urine, wears pullup brief. [place] to see tomorrow at 0830 for eval. Follow up:
--- NOTE | 2017-03-11 03:11 | NUR ---
Significant Event: PATIENT ALERT AND ORIENTED X 3. VSS. TAKING PO WITHOUT DIFFICULTY. CONTINUES TO BE INCONTINENT AT TIMES. UP WITH HEAVY 2 ASSIST TO COMMODE. PAIN WELL CONTROLLED WITH NORCO AT 2114. HAS DENIED PAIN SINCE. CSM'S TO RIGHT LOWER EXT. WNL. LIANET WRAP/SALINE GUAZE DRESSING C/D/I - DAILY DRESSING CHANGE. CAM BOOT ON WHEN UP. [facility] TO COME AT 0830 FOR EVAL TODAY. Follow up:
--- NOTE | 2017-03-11 10:40 | NUR ---
Toy-PT - patient doing well and maybe could return to [facility]. [facility] didn't get to see at 0830 as planned due to the doctor being in to see her but planning to come back at some point. 1130 called Renea at [facility], can come at noon to assess. Notified Clara in therapies, she will let Toy know. 1235 Nurse Lamar called and [facility] will accept back today. 1305 Renea left a message that patient can come back today. 1330 spoke to Sandie Zavala with [facility] #[phone], faxed orders and meds. Will plan to see her tomorrow. Family is aware of ability to return.
--- NOTE | 2017-03-11 11:49 | NUR ---
Student nurse provided patient cares from 0630 to 1215. Vic Thomason RN, [facility] Instructor
[2017-03-11] MEDS ORDERED: FLORASTOR250 MG PO (15:38)
[2017-03-11] MEDS ORDERED: AUGMENTIN250 MG PO (15:42)
[2017-03-11] MEDS ORDERED: NORCO 5-325 TA1 EACH PO (15:42)
--- NOTE | 2017-03-11 17:54 | NUR ---
Dismissal Note: Ambulates with one assist and gaitbelt. Dressing changed this am by Dr Kline. Voids without difficulty. No BM. Van 1 tab for pain control. Jose L education given with dismissal instructions, patient and family state understanding. IV d/cd. Dismissed to [place] with family.
== END 2017-03-11 17:00 | disposition home health service (06) | DRG 501 ==
LOC: G3N 06:00 → GSDC 06:00 → G3N 09:45 → GSDC 09:46 → G3N 09:46 → GSDC 11:00 → G3N 03-11 17:00
PROVIDERS: ADMIT Orthopaedic Surgery
PROC: 0QP Lower Bones, Removal (ICD-10-PCS; principal; 2017-03-09)
PROC: 0JDN0ZZ Extraction of Right Lower Leg Subcutaneous Tissue and Fascia, Open Approach (ICD-10-PCS; 2017-03-09)
PROC: 2W3QX1Z Immobilization of Right Lower Leg using Splint (ICD-10-PCS; 2017-03-10)
DX: T84.7XXA Infection and inflammatory reaction due to other internal orthopedic prosthetic devices, implants and grafts, initial encounter (principal); N39.0 Urinary tract infection, site not specified; G35 Multiple sclerosis; I10 Essential (primary) hypertension; M19.90 Unspecified osteoarthritis, unspecified site; Z91.81 History of falling; E78.5 Hyperlipidemia, unspecified; E53.9 Vitamin B deficiency, unspecified
CPT/HCPCS: J0690; J2001; J3420; J7120